=== PATIENT | male | born 1945 | race Caucasian/White ===

== ENCOUNTER 2019-05-09 09:19 | Day surgery (SDC) | payer MEDICARE, OTHER ==
--- NOTE | 2019-05-09 07:40 | HP ---
DATE OF SURGERY: 05/09/2019 ADMISSION DIAGNOSIS: ANTICIPATED PROCEDURE: Right inguinal hernia with mesh. HISTORY OF PRESENT ILLNESS: The patient has a moderate sized symptomatic right inguinal hernia presents for repair. Referred by Katlyn Mandujano. PAST MEDICAL HISTORY: ALLERGIES: NONE. MEDICATIONS: Lisinopril. PAST SURGICAL HISTORY: Cataract. Tonsillectomy. SOCIAL HISTORY: Negative. FAMILY HISTORY: Negative. REVIEW OF SYSTEMS: Diabetes. PHYSICAL EXAMINATION: VITAL SIGNS: Normal. CHEST: Clear. COR: Regular. ABDOMEN: No palpable organomegaly or mass. IMPRESSION: Moderate sized right inguinal hernia. PLAN: Repair.
[~2019-05-09 09:19] MED LIST: Lactated Ringers 1,000 ML IV ONE; Sensorcaine 0.25% 10 ML ONE
[2019-05-09] MEDS ORDERED: CEFAZOLIN 2 GM-D5W BAG** 2 GM/50 ML ML IV ONE (09:25)
[2019-05-09] MEDS ORDERED: Lactated Ringers 1,000 ML IV ONE (09:25)
[2019-05-09] MEDS ORDERED: Lactated Ringers 1,000 ML IV SCH (09:30)
[2019-05-09] MEDS ORDERED: CEFAZOLIN 2 GM-D5W BAG** 2 GM/50 ML ML IV SCH (09:30)
[2019-05-09] MEDS ORDERED: KEFZOL 1 GM ONE (10:56)
[2019-05-09] MEDS ORDERED: Versed 2 MG/2 ML Injection ONE (11:22)
[2019-05-09] MEDS ORDERED: SUBLIMAZE 100 MCG/2 ML ONE ×2 (11:22→12:37)
[2019-05-09] MEDS ORDERED: DIPRIVAN 200 MG/20 ML IV ONE (11:22)
[2019-05-09] MEDS ORDERED: Quelicin Fliptop 200 MG/10 ML ONE (11:37)
[2019-05-09] MEDS ORDERED: Quelicin Fliptop 200 MG/10 ML IV ONE (11:43)
[2019-05-09] MEDS ORDERED: Zemuron 100 MG/10 ML ONE (11:43)
[2019-05-09] MEDS ORDERED: TORAdol 30 mg Injection ONE (12:24)
[2019-05-09] MEDS ORDERED: MORPHINE SULFATE 10 MG/ML ONE (12:37)
[2019-05-09 14:11] VITALS: BP 136/77; PULSE 64; O2SAT 94
--- NOTE | 2019-05-09 14:44 | OP ---
SURGERY DATE/TIME: 05/09/2019 1123 PREOPERATIVE DIAGNOSIS: Large indirect hernia. POSTOPERATIVE DIAGNOSIS: Large indirect inguinal hernia. PROCEDURE: Right inguinal herniorrhaphy with mesh. SURGEON: Robert Joaquin M.D. ANESTHESIA: General. COMPLICATIONS: None. CONDITION: Stable. INDICATION: A patient with symptomatic hernia. DESCRIPTION OF PROCEDURE: Taken to surgery. General anesthetic. Routine prep and drape. 0.25% Marcaine infiltrated. Time out. Curvilinear incision. External oblique opened, cord was dissected. The cord was thick. There was a sac 0.5 inch large, no sliding component. Highly ligated. Direct visualization. #0 Prolene. Excess sac removed. Small lipoma removed. Floor reinforced in Binu's ligament-type fashion with 0 Prolene and 1 x 4 mesh. Internal ring was one clamp tight. Cord, ilioinguinal nerve laid back in natural position. External oblique closed with 0 Vicryl. Keeley fascia closed with 2-0 Vicryl. Skin closed with 4-0 Vicryl. Steri-Strips applied. Sterile dressing applied. The patient tolerated the procedure satisfactorily.
== END 2019-05-09 14:39 | disposition home or self-care (01) ==
LOC: SDC 09:19
PROVIDERS: ATTEND Surgery
DX: K40.90 Unilateral inguinal hernia, without obstruction or gangrene, not specified as recurrent (principal); E11.9 Type 2 diabetes mellitus without complications
CPT/HCPCS: 49505; C1781; 88302; 99100; J0330; J0690; J1885; J2250; J2270; J2704; J3010

== ENCOUNTER 2024-09-19 05:51 | Day surgery (SDC) | payer MEDICARE, OTHER ==
--- NOTE | 2024-09-17 07:59 | HP ---
HISTORY OF PRESENT ILLNESS: The patient is a 78-year-old male, presents for colonoscopy. Last scope was 11 years ago. He drinks a lot of caffeine and has looser stools. He has some diverticulosis in the family. He has no other issues at this time. PAST MEDICAL HISTORY: Diabetes, hypertension, hyperlipidemia. HOME MEDICATIONS: Primidone, lisinopril, Atorvastatin, aspirin. ALLERGIES: Negative. PAST SURGICAL HISTORY: Hernia. SOCIAL HISTORY: Negative. FAMILY HISTORY: None. REVIEW OF SYSTEMS: CONSTITUTIONAL: Denies fever or chills. CHEST: Denies shortness of breath. CARDIOVASCULAR: Denies chest pain. ABDOMEN: Denies abdominal pain. PHYSICAL EXAMINATION: GENERAL: No acute distress. CARDIOVASCULAR: Regular rate and rhythm. RESPIRATORY: Nonlabored. No shortness of breath. ABDOMEN: Soft. IMPRESSION: Screening. PLAN: Colonoscopy with Dr. Robert Joaquin. This report was dictated for Dr. Joaquin by Vera Person NP.
[2024-09-19 06:34] VITALS: TEMP 97.2
[2024-09-19] MEDS ORDERED: DIPRIVAN 200 MG/20 ML IV ONE (08:27)
[2024-09-19 08:53] VITALS: RESP 16
[2024-09-19 09:04] VITALS: PULSE 91
[2024-09-19 09:08] VITALS: BP 124/81; O2SAT 97
--- NOTE | 2024-09-19 18:01 | OP ---
SURGERY DATE/TIME: 09/19/2024 [id number] PREOPERATIVE DIAGNOSIS: Followup polyp screening, 78 years old. POSTOPERATIVE DIAGNOSIS: No polyps today. No mucosal lesions. Patient had some mild sigmoid diverticulosis. He has moderate internal hemorrhoids. PROCEDURE: Colonoscopy. SURGEON: Toro Joaquin MD ANESTHESIA: MAC. DESCRIPTION OF PROCEDURE AND FINDINGS: Patient was taken to endoscopy, left lateral decubitus position. Anal digital examination satisfactory. Prostate satisfactory for age. Scope introduced. Anorectum normal. Scope advanced to the cecum. Base of the cecum, ileocecal valve, and appendiceal orifice were normal. Ascending, hepatic, transverse, splenic, descending, sigmoid. There was mild sigmoid diverticulosis with just a little bit of spasm. Rectum, anus. The patient tolerated the procedure satisfactorily. He is 78. He had no mucosal lesions. We will toro him as caught up. We will not send him any followup reminders. If he becomes symptomatic for some reason, he is eligible for an endoscopic examination.
== END 2024-09-19 09:20 | disposition home or self-care (01) ==
LOC: SDC 05:51
PROVIDERS: ATTEND Surgery
DX: Z12.11 Encounter for screening for malignant neoplasm of colon (principal); I10 Essential (primary) hypertension; E11.9 Type 2 diabetes mellitus without complications; K57.30 Diverticulosis of large intestine without perforation or abscess without bleeding; K64.8 Other hemorrhoids
CPT/HCPCS: 82947; 93005; G0121; J2704